=== PATIENT | female | born 1980 | race American Indian/Alaskan Native ===

== ENCOUNTER 2018-07-17 09:30 | Observation (INO) | payer OTHER ==
--- NOTE | 2018-07-17 10:41 | ED PDOC ---
Arrival/HPI - General Chief Complaint: Weakness/Neurological Deficit Time Seen by Provider: 07/17/18 09:38 Historian: Patient - History of Present Illness Narrative History of Present Illness (Text): 07/17/18 10:33 38yo morbidly obese female with pmhx of Ji's disease present with complaint of left arm numbness/weakness with associated nausea and lightheadedness at 0730am this morning, while driving to work. States the numbness resolved while in ED waiting room. States she had chest pain 2days ago , that resolved. She states she have not seen a Doctor for a while now. Denies diaphoresis, visual changes, abdominal pain, slurred speech, facial droop, focal weakness, back pain, any other complaint. Past Medical History - Provider Review Nursing Documentation Reviewed: Yes - Infectious Disease Hx of Infectious Diseases: None - Endocrine/Metabolic Other/Comment: Ji's disease - Psychiatric Hx Substance Use: No - Surgical History Hx Dilation and Curettage: Yes - Anesthesia Hx Anesthesia: Yes Hx Anesthesia Reactions: No Hx Malignant Hyperthermia: No Family/Social History - Physician Review Nursing Documentation Reviewed: Yes Family/Social History: Unknown Family HX Smoking Status: Never Smoked Hx Alcohol Use: No Hx Substance Use: No Allergies/Home Meds Allergies/Adverse Reactions: Allergies No Known Allergies Allergy (Verified 07/17/18 09:35) Home Medications: Home Meds Medication Instructions Recorded Confirmed No Known Home Med 07/17/18 07/17/18 Review of Systems - Physician Review All systems were reviewed & negative as marked: Yes - Review of Systems Constitutional: Normal Eyes: Normal ENT: Normal Respiratory: Normal Cardiovascular: Normal Gastrointestinal: Normal Genitourinary Female: Normal Musculoskeletal: Normal Skin: Normal Neurological: Normal Endocrine: Normal Hemo/Lymphatic: Normal Psychiatric: Normal Physical Exam Vital Signs Reviewed: Yes Vital Signs Temp Pulse Resp BP Pulse Ox 07/17/18 09:39 98.4 F 86 18 118/64 100 Temperature: Afebrile Blood Pressure: Normal Pulse: Regular Respiratory Rate: Normal Appearance: Positive for: Well-Appearing, Non-Toxic, Comfortable Pain Distress: None Mental Status: Positive for: Alert and Oriented X 3 - Systems Exam Head: Present: Atraumatic, Normocephalic Pupils: Present: PERRL Extroacular Muscles: Present: EOMI Conjunctiva: Present: Normal Mouth: Present: Moist Mucous Membranes Neck: Present: Normal Range of Motion Respiratory/Chest: Present: Clear to Auscultation, Good Air Exchange. No: Respiratory Distress, Accessory Muscle Use Cardiovascular: Present: Regular Rate and Rhythm, Normal S1, S2. No: Murmurs Abdomen: No: Tenderness, Distention, Peritoneal Signs Back: Present: Normal Inspection Upper Extremity: Present: Normal Inspection. No: Cyanosis, Edema Lower Extremity: Present: Normal Inspection. No: Edema Neurological: Present: GCS=15, CN II-XII Intact, Speech Normal, Motor Func Grossly Intact, Normal Sensory Function, Normal Cerebellar Funct, Norm Deep Tendon Reflexes, Gait Normal, Memory Normal, Normal 2Pt Descrimination, Other ( No focal neurological deficit) Skin: Present: Warm, Dry, Normal Color. No: Rashes Psychiatric: Present: Alert, Oriented x 3, Normal Insight, Normal Concentration Medical Decision Making ED Course and Treatment: 07/17/18 12:08 38yo female present with complaint of left arm weakness/numbness. Labs ordered thyroid profile Cardiac monitoring swallow test EKG Head CT CXR Will reassess EKG NSR @ 83bpm CXR NAD 07/17/18 12:21 PT remain neurologically intact in ED. Labs was reviewed and was unremarkable with exception of mild low T4 - 0.[address] - No acute finding Pt's symptoms resolved in ED. She will be placed on OBS for TIA for further evaluation. Case was DW Dr. Armstrong and she accepted pt to her service. - Lab Interpretations Lab Results: 07/17/18 11:03 07/17/18 11:03 Lab Results 07/17/18 11:03: Free T4 0.71 L, TSH 3rd Generation 0.74 07/17/18 11:03: Urine Color Yellow, Urine Appearance Clear, Urine pH 6.5, Ur Specific [place] 1.015, Urine Protein Trace H, Urine Glucose (UA) Negative, Urine Ketones Negative, Urine Blood Negative, Urine Nitrate Negative, Urine Bilirubin Negative, Urine Urobilinogen 0.2, Ur Leukocyte Esterase Negative, Urine RBC 0 - 2, Urine WBC 0 - 2, Ur Epithelial Cells 4 - 5, Urine Bacteria Mod 07/17/18 11:03: Sodium 141, Potassium 4.4, Chloride 104, Carbon Dioxide 22, Anion Gap 20, BUN 9, Creatinine 0.6 L, Est GFR ( Amer) > 60, Est GFR (Non -Af Amer) > 60, Random Glucose 115 H, Calcium 9.8, Total Bilirubin 0.3, AST 19, ALT 17, Alkaline Phosphatase 79, Troponin I < 0.01, Total Protein 8.6 H, Albumin 4.4, Globulin 4.2, Albumin/Globulin Ratio 1.0 L, Triglycerides 129, Cholesterol 181, LDL Cholesterol Direct 104, HDL Cholesterol 36 07/17/18 11:03: PT 12.9 H, INR 1.12, APTT 30.8 07/17/18 11:03: WBC 9.2, RBC 5.42, Hgb 12.7, Hct 38.8, MCV 71.6 L, MCH 23.4 L, MCHC 32.7, RDW 17.2 H, Plt Count 458 H, MPV 8.9, Gran % 69.5 H, Lymph % (Auto) 24.9, [place] % (Auto) 4.4, Eos % (Auto) 1.1 L, Baso % (Auto) 0.1, Gran # 6.42, Lymph # (Auto) 2.3, [place] # (Auto) 0.4, Eos # (Auto) 0.1, Baso # (Auto) 0.01 - RAD Interpretation Radiology Orders: 07/17/18 10:06 HEAD W/O CONTRAST [CT] Stat CHEST ONE VIEW [RAD] Stat - Medication Orders Current Medication Orders: Sodium Chloride (Sodium Chloride 0.9%) 1,000 mls @ 100 mls/hr IV .Q10H JOHN Last Admin: 07/17/18 11:37 Dose: 100 mls/hr eMAR Start Stop Document 07/17/18 11:37 [email or web address] (Rec: 07/17/18 11:39 [email or web address] [id number]) Intravenous Solution Start Date 07/17/18 Start Time 11:39 NIHSS Stroke Scale 3 - Date/Time Evaluation Performed Date Performed: 07/17/18 Time Performed: 10:15 When Was NIHSS Performed: Baseline - How Severe is the Stroke Level of Consciousness: 0=Alert LOC to Questions: 0=Both comments correct LOC to commands: 0=Obeys both correctly Best Gaze: 0=Normal Visual: 0=No visual loss Facial: 0=Normal Motor Arm - Left: 0=No drift Motor Arm - Right: 0=No drift Motor Leg - Left: 0=No drift Motor Leg - Right: 0=No drift Limb Ataxia: 0=Absent Sensory: 0=Normal Best Language: 0=No aphasia Dysarthia: 0=Normal articulation Extinction & Inattention (Neglect): 0=Normal, no object Score: 0 Disposition/Present on Arrival - Present on Arrival Any Indicators Present on Arrival: No History of DVT/PE: No History of Uncontrolled Diabetes: No Urinary Catheter: No History of Decub. Ulcer: No History Surgical Site Infection Following: None - Disposition Have Diagnosis and Disposition been Completed?: Yes Diagnosis: Transient ischemic attack Disposition: HOSPITALIZED Disposition Time: 12:10 Patient Plan: Admission Patient Problems: Current Active Problems Problem Status Onset Transient ischemic attack Acute Condition: STABLE
[2018-07-17 11:18] LABS: PH,URINE 6.5 (4.7-8.0); URINE BILIRUBIN NEGATIVE (NEGATIVE); URINE BLOOD NEGATIVE (NEGATIVE); URINE GLUCOSE (UA) NEGATIVE (NEGATIVE); URINE LEUKOCYTE ESTERASE NEGATIVE Leu/uL (NEGATIVE); URINE PROTEIN TRACE mg/dL (<30 mg/dL); URINE UROBILINOGEN 0.2 E.U./dL (<1 E.U./dL)
[2018-07-17 11:19] LABS: BASO # 0.01 K/mm3 (0.0-2.0); BASO % 0.1 % (0.0-3.0); EOS # 0.1 (0.0-0.7); EOS % 1.1 % (1.5-5.0); GRAN # 6.42 (1.4-6.5); GRAN % 69.5 % (50.0-68.0); HEMOGLOBIN 12.7 g/dL (12.0-16.0); LYMPH # 2.3 (1.2-3.4); LYMPH % 24.9 % (22.0-35.0); MEAN CELL VOLUME 71.6 fl (80.0-105.0); MEAN CORPUSCULAR HEMOGLOBIN 23.4 pg (25.0-35.0); MEAN CORPUSCULAR HGB CONC 32.7 g/dl (31.0-37.0); MEAN PLATELET VOLUME 8.9 fl (7.0-11.0); MONO # 0.4 (0.1-0.6); MONO % 4.4 % (1.0-6.0); RBC 5.42 10^6/uL (3.5-6.1); RED CELL DISTRIBUTION WIDTH 17.2 % (11.5-14.5); URINE APPEARANCE CLEAR (CLEAR); URINE COLOR YELLOW (YELLOW); WHITE BLOOD COUNT 9.2 10^3/ul (4.5-11.0)
[2018-07-17 11:23] LABS: URINE RBC 0 - 2 /hpf (0-2); URINE WBC 0 - 2 /hpf (0-6)
[2018-07-17 11:24] LABS: URINE BACTERIA MOD (NEG)
[2018-07-17 11:32] LABS: INR 1.12; PARTIAL THROMBOPLASTIN TIME 30.8 Seconds (25.1-36.5); PROTHROMBIN TIME 12.9 SECONDS (9.4-12.5)
[2018-07-17 11:33] LABS: ALBUMIN 4.4 g/dL (3.0-4.8); ALT/SGPT 17 U/L (7-56); AST/SGOT 19 U/L (14-36); BLOOD UREA NITROGEN 9 mg/dL (7-21); CALCIUM 9.8 mg/dL (8.4-10.5); GFR AFRICAN-AMERICAN > 60; GFR NON-AFRICAN AMERICAN > 60; HDL CHOLESTEROL 36 mg/dL (29-60)
--- NOTE | 2018-07-17 11:35 | CT ---
Date of service: 07/17/2018 PROCEDURE: CT HEAD WITHOUT CONTRAST. HISTORY: Left hand weakness COMPARISON: None available. TECHNIQUE: Axial computed tomography images were obtained through the head/brain without intravenous contrast. Radiation dose: Total exam DLP = 889.93 mGy-cm. This CT exam was performed using one or more of the following dose reduction techniques: Automated exposure control, adjustment of the mA and/or kV according to patient size, and/or use of iterative reconstruction technique. FINDINGS: HEMORRHAGE: No intracranial hemorrhage. BRAIN: Batista-white matter differentiation is preserved. There is no mass, mass effect or abnormal extra-axial fluid collection. There is no territorial infarction. The midline sagittal structures are normal. VENTRICLES: The ventricles are normal in size, shape and configuration. CALVARIUM: The skull base and calvarium are normal. PARANASAL SINUSES: Predominantly clear. MASTOID AIR CELLS: Predominantly clear. OTHER FINDINGS: None. IMPRESSION: No acute intracranial abnormality. If there is a persistent focal neurologic deficit and an ongoing clinical concern for acute infarction, an MRI of the brain without intravenous contrast would be a more sensitive modality for evaluation of hyperacute/acute ischemic infarction.
[2018-07-17] MEDS: Sodium Chloride 0.9% 1,000 ML IV SCH ×2 (11:37→21:22)
--- NOTE | 2018-07-17 11:39 | RAD ---
Date of service: 07/17/2018 PROCEDURE: CHEST RADIOGRAPH, 1 VIEW HISTORY: Code Stroke COMPARISON: None available. FINDINGS: LUNGS: The lungs are well inflated and clear. PLEURA: No pneumothorax or pleural fluid seen. CARDIOVASCULAR: Normal. OSSEOUS STRUCTURES: No significant abnormalities. VISUALIZED UPPER ABDOMEN: Normal. OTHER FINDINGS: None. IMPRESSION: No active pulmonary disease.
[2018-07-17 11:43] LABS: LDL CHOLESTEROL 104 mg/dL (0-129); TROPONIN I < 0.01 ng/mL
[2018-07-17 11:48] LABS: FREE T4 0.71 ng/dL (0.78-2.19)
--- NOTE | 2018-07-17 14:03 | CP.PCM.HP ---
<Johnny Corona - Last Filed: 07/17/18 13:44> History of Present Illness - History of Present Illness History of Present Illness: Maurice Corona PGY-2 - History and Physical for Hospitalist Service CC: Left hand/arm numbness HPI: 38 year old female with past medical history of Ji's thyroiditis who presents with left hand and arm parasthesias. Patient indicates that on her drive to work this morning starting at about 7 am she began to experience tingling and numbness in her left hand that radiated up in to her left arm. Associated symptoms included nausea without vomiting and feelings of being hot. She denied weakness, paralysis, poor coordination associated with symptoms. She reports symptoms progressed from hand to arm back down to her hand and then diminished. She stated that while waiting in emergency department her symptoms subsided completely. She indicates that at the time of her symptoms she was experiencing symptoms of anxiety. Patient denied any other neurological deficits , denied facial numbness, left leg numbness, poor coordination. She denies dizziness, changes in vision, headache. Patient was able to complete her drive without issue. Patient also indicated that 3 days prior to admission she had a 24 hour history of chest discomfort. She described the pain as a squeezing of her chest, starting midsternal without radiation, rated mild pain. She indicated that with rest the pain would diminish and that if she were to lay on one side or the other she would have increase in her pain symptoms. She denied taking anything for her symptoms or prior episodes. 12 POINT ROS benign other than mentioned in HPI PMH: Ji's Thyroiditis, Hx of benign goitersx3 PSH: D&C SocHx: Denies tobacco, ETOH, ID - Lives in [place] with mother, brother, daughter, works in IT FMH: Mother/Father: DM2, HTN ALL: NKDA MEDS: Denies PMD: [place], [place] Physical Education Teacher: Dr. Romero([facility]) Present on Admission - Present on Admission Any Indicators Present on Admission: No Review of Systems - Review of Systems All systems: reviewed and no additional remarkable complaints except (as mentioned in HPI) Past Patient History - Infectious Disease Hx of Infectious Diseases: None - Past Social History Smoking Status: Never Smoked Alcohol: None Drugs: Denies - ENDOCRINE/METABOLIC Other/Comment: Ji's disease - PSYCHIATRIC Hx Substance Use: No - SURGICAL HISTORY Hx Dilation and Curettage: Yes - ANESTHESIA Hx Anesthesia: Yes Hx Anesthesia Reactions: No Hx Malignant Hyperthermia: No Meds Allergies/Adverse Reactions: Allergies Allergy/AdvReac Type Severity Reaction Status Date / Time No Known Allergies Allergy Verified 07/17/18 09:35 Physical Exam - Constitutional Appears: Non-toxic, No Acute Distress - Head Exam Head Exam: ATRAUMATIC, NORMAL INSPECTION, NORMOCEPHALIC - Eye Exam Eye Exam: EOMI, PERRL. absent: Nystagmus, Scleral icterus - ENT Exam ENT Exam: Mucous Membranes Moist - Neck Exam Neck exam: Positive for: Full Rom. Negative for: Lymphadenopathy, Tenderness - Respiratory Exam Respiratory Exam: Clear to Auscultation Bilateral, NORMAL BREATHING PATTERN. absent: Rales, Rhonchi, Wheezes - Cardiovascular Exam Cardiovascular Exam: Tachycardia, REGULAR RHYTHM, +S1, +S2 - GI/Abdominal Exam GI & Abdominal Exam: Normal Bowel Sounds, Soft. absent: Distended, Guarding, Rebound, Rigid - Extremities Exam Extremities exam: Positive for: pedal pulses present. Negative for: calf tenderness, pedal edema, tenderness - Neurological Exam Neurological exam: Alert, CN II-XII Intact, Normal Gait, Oriented x3, Reflexes Normal Additional comments: AAOx3 Coordination intact Patient able to move all four extremities past midline Heel to bautista intact Sensory grossly intact - Psychiatric Exam Psychiatric exam: Normal Affect, Normal Mood - Skin Skin Exam: Dry, Intact, Warm Results - Vital Signs Recent Vital Signs: Last Vital Signs Temp 98.2 F 07/17/18 12:55 Pulse 93 H 07/17/18 12:55 Resp 18 07/17/18 12:55 BP 119/72 07/17/18 12:54 Pulse Ox 98 07/17/18 12:55 - Labs Result Diagrams: 07/17/18 11:03 07/17/18 11:03 Assessment & Plan - Assessment and Plan (Free Text) Assessment: 38 year old female with past medical history of Ji's thyroiditis who presents with left hand and arm parasthesias. Patient symptoms have resolved. Head CT negative. Neurology to be consulted. Will continue to monitor patient overnight. Plan: Left upper extremity paresthisias - Etiology: TIA vs. DM2 vs. entrapment neuropathy vs. Thoracic outlet syndrome vs. Hypocalcemia - CT head preformed showing no acute findings - HgA1c ordered, bg 115 on admission, no hx - Karsten sign negative, Anton's test negative - Calcium stable - Echocardiogram pending - Neurology consultation, appreciate recs - Neuro checks, monitor for change Hx of Ji's thyroiditis - Patient currently asymptomatic and non medicated - TSH: nml Free T4 0.71 - Recommend outpatient follow up for management and observation GI/DVT ppx - None - Rainer score: 1, SCDs Case and plan discussed with attending, Dr. Jennifer Corona PGY2 - Date & Time Date: 07/17/18 Time: 14:06 <Chris Rodriguez - Last Filed: 07/18/18 17:02> Results - Vital Signs Recent Vital Signs: Last Vital Signs Temp 98.2 F 07/18/18 07:47 Pulse 85 07/18/18 07:47 Resp 19 07/18/18 07:47 BP 145/66 07/18/18 07:47 Pulse Ox 99 07/18/18 07:47 - Labs Result Diagrams: 07/18/18 05:30 07/18/18 05:30 Labs: Laboratory Results - last 24 hr 07/17/18 07/18/18 07/18/18 23:45 05:30 05:30 WBC 7.4 RBC 4.75 Hgb 10.8 L Hct 34.0 L MCV 71.6 L MCH 22.7 L MCHC 31.8 RDW 17.3 H Plt Count 384 MPV 8.8 Gran % 48.4 L Lymph % (Auto) 40.4 H [place] % (Auto) 8.6 H Eos % (Auto) 2.3 Baso % (Auto) 0.3 Gran # 3.56 Lymph # (Auto) 3.0 [place] # (Auto) 0.6 Eos # (Auto) 0.2 Baso # (Auto) 0.02 Sodium 141 Potassium 4.3 Chloride 108 H Carbon Dioxide 24 Anion Gap 14 BUN 8 Creatinine 0.6 L Est GFR ( Amer) > 60 Est GFR (Non-Af Amer) > 60 Random Glucose 123 H Calcium 8.7 Total Bilirubin 0.2 AST 23 ALT 23 Alkaline Phosphatase 62 Troponin I < 0.01 Total Protein 6.7 Albumin 3.4 Globulin 3.4 Albumin/Globulin Ratio 1.0 L Attending/Attestation - Attestation I have personally seen and examined this patient.: Yes I have fully participated in the care of the patient.: Yes I have reviewed all pertinent clinical information: Yes Notes (Text): 07/18/18 16:59 attending note; Patient seen and examined with resident In ER. Patient is a38 year old female with past medical history of Ji's thyroiditis who presents with left hand and arm parasthesias. Patient indicates that on her drive to work this morning starting at about 7 am she began to experience tingling and numbness in her left hand that radiated up in to her left arm. currently the numbness is resolved. Patient also complains of transient is discomfort 2 days ago. Denies any past medical history of hypertension, diabetes, hyperlipidemia, coronary artery disease or family history of CAD. CT head is negative. Neurology evaluation requested. Less likely TIA. Cardiac enzymes 3 ordered. Mostly musculoskeletal pain. Echocardiogram requested. history of Ji's disease;TSH is normal. upon discharge the patient will follow up with [facility]. patient is strongly advised to follow-up with endocrinology as outpatient.
[2018-07-17 14:20] VITALS: BMI 43.0
--- NOTE | 2018-07-17 15:28 | CP.PCM.CON ---
History of Present Illness - History of Present Illness History of Present Illness: Joseph Painter PGY2 Neurology Consult for Dr. Junior Ms. Trujillo is a 38-year-old -Citizen Of [place] female with a PMH of Ji's thyroiditis, benign thyroid goiters, and obesity who presents with left upper extremity numbness for several hours earlier today. Neurology is consulted for evaluation for TIA. Patient states that she has had similar symptoms of numbness and tingling in both her arms before, but never as pronounced as earlier today. She states she was driving at the time, and was a little anxious. She denied any focal weakness, headaches, dizziness, changes in vision /hearing, slurring of speech or facial asymmetry. She does state that she experienced some chest discomfort over the past 2 days, but that has resolved. The patient does not take any medications currently. 12 point ROS was reviewed and is otherwise unremarkable. PMH: Ji's Thyroiditis, Hx of benign goitersx3 PSH: D&C Meds: none Allergies: NKDA SHx: Denies tobacco, EtOH or drug use FMH: Mother/Father: DM2, HTN Review of Systems - Review of Systems All systems: reviewed and no additional remarkable complaints except (as per HPI ) Past Patient History - Infectious Disease Hx of Infectious Diseases: None - Past Medical History & Family History Past Medical History?: Yes Pertinent Family History: as per hPI - Past Social History Smoking Status: Never Smoked Alcohol: None Drugs: Denies - CARDIAC Hx Cardiac Disorders: No - PULMONARY Hx Respiratory Disorders: No - NEUROLOGICAL Hx Neurological Disorder: No - HEENT Hx HEENT Problems: No - RENAL Hx Chronic Kidney Disease: No - ENDOCRINE/METABOLIC Hx Endocrine Disorders: Yes Other/Comment: Ji's disease - HEMATOLOGICAL/ONCOLOGICAL Hx Blood Disorders: No - INTEGUMENTARY Hx Dermatological Problems: No - MUSCULOSKELETAL/RHEUMATOLOGICAL Hx Musculoskeletal Disorders: No Hx Falls: No - GASTROINTESTINAL Hx Gastrointestinal Disorders: No - GENITOURINARY/GYNECOLOGICAL Hx Genitourinary Disorders: No - PSYCHIATRIC Hx Psychophysiologic Disorder: No Hx Substance Use: No - SURGICAL HISTORY Hx Dilation and Curettage: Yes - ANESTHESIA Hx Anesthesia: Yes Hx Anesthesia Reactions: No Hx Malignant Hyperthermia: No Meds Allergies/Adverse Reactions: Allergies Allergy/AdvReac Type Severity Reaction Status Date / Time No Known Allergies Allergy Verified 07/17/18 09:35 - Medications Medications: Current Medications Acetaminophen (Tylenol 325mg Tab) 650 mg PO Q6H PRN PRN Reason: Pain, moderate (4-7) Aspirin (Ecotrin) 81 mg PO DAILY [facility] Last Admin: 07/17/18 14:41 Dose: 81 mg Atorvastatin Calcium (Lipitor) 10 mg PO DIN [facility] Sodium Chloride (Sodium Chloride 0.9%) 1,000 mls @ 100 mls/hr IV .Q10H [facility] Last Admin: 07/17/18 11:37 Dose: 100 mls/hr Physical Exam - Constitutional Appears: Well, Non-toxic, No Acute Distress - Head Exam Head Exam: NORMAL INSPECTION - Eye Exam Eye Exam: EOMI, Normal appearance, PERRL - ENT Exam ENT Exam: Mucous Membranes Moist Additional comments: is missing teeth on left side of face so appears to have mild facial droop but is false - Neck Exam Neck exam: Positive for: Normal Inspection - Respiratory Exam Respiratory Exam: NORMAL BREATHING PATTERN. absent: Respiratory Distress - Cardiovascular Exam Cardiovascular Exam: RRR, +S1, +S2 - GI/Abdominal Exam GI & Abdominal Exam: Normal Bowel Sounds, Soft. absent: Distended, Tenderness Additional comments: obese body habitus - Extremities Exam Extremities exam: Positive for: full ROM, normal inspection. Negative for: pedal edema - Back Exam Back exam: NORMAL INSPECTION - Neurological Exam Neurological exam: Alert, CN II-XII Intact, Normal Gait, Oriented x3 Additional comments: no motor sensory deficits no facial asymmetry no slurring of speech no dysmetria noted - Psychiatric Exam Psychiatric exam: Normal Mood - Skin Skin Exam: Normal Color Results - Vital Signs Recent Vital Signs: Last Vital Signs Temp 98.1 F 07/17/18 14:11 Pulse 91 H 07/17/18 14:11 Resp 18 07/17/18 14:11 BP 122/70 07/17/18 14:11 Pulse Ox 98 07/17/18 12:55 - Labs Result Diagrams: 07/17/18 11:03 07/17/18 11:03 Assessment & Plan - Assessment and Plan (Free Text) Assessment: 38-year-old -Citizen Of [place] female with a PMH of Ji's thyroiditis, benign thyroid goiters, and obesity who presents with left upper extremity numbness that has resolved. CT head was unremarkable. EKG showed NSR at 83 bpm. Lipid panel shows LDL 104, HDL 36. CVA/TIA is unlikely given the presentation, and this is likely due to peripheral neuropathy. Plan: - started on ASA 81mg daily to risk of future thrombotic events - started on Lipitor - A1C pending - trending troponin - PT eval - further recs per Dr. Junior Will sign off at this time. Please reconsult if needed. Case was reviewed and discussed with attending, Dr. Vernon Painter PGY2
--- NOTE | 2018-07-17 21:00 | CARD ---
APPROVED REPORT Date of service: 07/17/2018 EKG Measurement Heart [id number] <Conclusion> Normal sinus rhythm Cannot rule out Inferior infarct, age undetermined Abnormal ECG
[2018-07-18 06:29] LABS: BASO # 0.02 K/mm3 (0.0-2.0); BASO % 0.3 % (0.0-3.0); EOS # 0.2 (0.0-0.7); EOS % 2.3 % (1.5-5.0); GRAN # 3.56 (1.4-6.5); GRAN % 48.4 % (50.0-68.0); HEMOGLOBIN 10.8 g/dL (12.0-16.0); LYMPH % 40.4 % (22.0-35.0); MEAN CELL VOLUME 71.6 fl (80.0-105.0); MEAN CORPUSCULAR HEMOGLOBIN 22.7 pg (25.0-35.0); MEAN CORPUSCULAR HGB CONC 31.8 g/dl (31.0-37.0); MEAN PLATELET VOLUME 8.8 fl (7.0-11.0); MONO # 0.6 (0.1-0.6); MONO % 8.6 % (1.0-6.0); RBC 4.75 10^6/uL (3.5-6.1); RED CELL DISTRIBUTION WIDTH 17.3 % (11.5-14.5); WHITE BLOOD COUNT 7.4 10^3/ul (4.5-11.0)
[2018-07-18 06:48] LABS: ALBUMIN 3.4 g/dL (3.0-4.8); ALT/SGPT 23 U/L (7-56); AST/SGOT 23 U/L (14-36); BLOOD UREA NITROGEN 8 mg/dL (7-21); CALCIUM 8.7 mg/dL (8.4-10.5); GFR AFRICAN-AMERICAN > 60; GFR NON-AFRICAN AMERICAN > 60
[2018-07-18 07:47] VITALS: BP 145/66; PULSE 85; RESP 19; TEMP 98.2; O2SAT 99
--- NOTE | 2018-07-18 12:52 | CP.PCM.DIS ---
<Alverto Antoine - Last Filed: 07/18/18 13:38> Provider - Provider Date of Admission: 07/17/18 12:05 Attending physician: Chris Rodriguez MD Primary care physician: [facility] clinic Consults: Neurology Time Spent in preparation of Discharge (in minutes): 35 Hospital Course - Lab Results Lab Results: Most Recent Lab Values WBC 7.4 10^3/ul (4.5-11.0) 07/18/18 05:30 RBC 4.75 10^6/uL (3.5-6.1) 07/18/18 05:30 Hgb 10.8 g/dL (12.0-16.0) L 07/18/18 05:30 Hct 34.0 % (36.0-48.0) L 07/18/18 05:30 MCV 71.6 fl (80.0-105.0) L 07/18/18 05:30 MCH 22.7 pg (25.0-35.0) L 07/18/18 05:30 MCHC 31.8 g/dl (31.0-37.0) 07/18/18 05:30 RDW 17.3 % (11.5-14.5) H 07/18/18 05:30 Plt Count 384 10^3/uL (120.0-450.0) 07/18/18 05:30 MPV 8.8 fl (7.0-11.0) 07/18/18 05:30 Gran % 48.4 % (50.0-68.0) L 07/18/18 05:30 Lymph % (Auto) 40.4 % (22.0-35.0) H 07/18/18 05:30 [place] % (Auto) 8.6 % (1.0-6.0) H 07/18/18 05:30 Eos % (Auto) 2.3 % (1.5-5.0) 07/18/18 05:30 Baso % (Auto) 0.3 % (0.0-3.0) 07/18/18 05:30 Gran # 3.56 (1.4-6.5) 07/18/18 05:30 Lymph # (Auto) 3.0 (1.2-3.4) 07/18/18 05:30 [place] # (Auto) 0.6 (0.1-0.6) 07/18/18 05:30 Eos # (Auto) 0.2 (0.0-0.7) 07/18/18 05:30 Baso # (Auto) 0.02 K/mm3 (0.0-2.0) 07/18/18 05:30 PT 12.9 SECONDS (9.4-12.5) H 07/17/18 11:03 INR 1.12 07/17/18 11:03 APTT 30.8 Seconds (25.1-36.5) 07/17/18 11:03 Sodium 141 mmol/L (132-148) 07/18/18 05:30 Potassium 4.3 mmol/L (3.6-5.0) 07/18/18 05:30 Chloride 108 mmol/L (98-107) H 07/18/18 05:30 Carbon Dioxide 24 mmol/L (21-33) 07/18/18 05:30 Anion Gap 14 (10-20) 07/18/18 05:30 BUN 8 mg/dL (7-21) 07/18/18 05:30 Creatinine 0.6 mg/dl (0.7-1.2) L 07/18/18 05:30 Est GFR ( Amer) > 60 07/18/18 05:30 Est GFR (Non-Af Amer) > 60 07/18/18 05:30 Random Glucose 123 mg/dL (70-110) H 07/18/18 05:30 Hemoglobin A1c 6.7 % (4.2-6.5) H 07/17/18 11:03 Calcium 8.7 mg/dL (8.4-10.5) 07/18/18 05:30 Total Bilirubin 0.2 mg/dL (0.2-1.3) 07/18/18 05:30 AST 23 U/L (14-36) 07/18/18 05:30 ALT 23 U/L (7-56) 07/18/18 05:30 Alkaline Phosphatase 62 U/L (38-126) 07/18/18 05:30 Troponin I < 0.01 ng/mL 07/17/18 23:45 Total Protein 6.7 g/dL (5.8-8.3) 07/18/18 05:30 Albumin 3.4 g/dL (3.0-4.8) 07/18/18 05:30 Globulin 3.4 gm/dL 07/18/18 05:30 Albumin/Globulin Ratio 1.0 (1.1-1.8) L 07/18/18 05:30 Triglycerides 129 mg/dL (35-160) 07/17/18 11:03 Cholesterol 181 mg/dL (130-200) 07/17/18 11:03 LDL Cholesterol Direct 104 mg/dL (0-129) 07/17/18 11:03 HDL Cholesterol 36 mg/dL (29-60) 07/17/18 11:03 Free T4 0.71 ng/dL (0.78-2.19) L 07/17/18 11:03 TSH 3rd Generation 0.74 mIU/mL (0.46-4.68) 07/17/18 11:03 Urine Color Yellow (YELLOW) 07/17/18 11:03 Urine Appearance Clear (CLEAR) 07/17/18 11:03 Urine pH 6.5 (4.7-8.0) 07/17/18 11:03 Ur Specific Sharon 1.015 (1.005-1.035) 07/17/18 11:03 Urine Protein Trace mg/dL (<30 mg/dL) H 07/17/18 11:03 Urine Glucose (UA) Negative mg/dL (NEGATIVE) 07/17/18 11:03 Urine Ketones Negative mg/dL (NEGATIVE) 07/17/18 11:03 Urine Blood Negative (NEGATIVE) 07/17/18 11:03 Urine Nitrate Negative (NEGATIVE) 07/17/18 11:03 Urine Bilirubin Negative (NEGATIVE) 07/17/18 11:03 Urine Urobilinogen 0.2 E.U./dL (<1 E.U./dL) 07/17/18 11:03 Ur Leukocyte Esterase Negative Vineet/uL (NEGATIVE) 07/17/18 11:03 Urine RBC 0 - 2 /hpf (0-2) 07/17/18 11:03 Urine WBC 0 - 2 /hpf (0-6) 07/17/18 11:03 Ur Epithelial Cells 4 - 5 /hpf (0-5) 07/17/18 11:03 Urine Bacteria Mod (NEG) 07/17/18 11:03 - Hospital Course Hospital Course: On admission: 38 year old female with past medical history of Ji's thyroiditis who presents with left hand and arm parasthesias. Patient symptoms have resolved. Head CT negative. Neurology to be consulted. Will continue to monitor patient overnight. Hospital course: Patient got admitted to rule out TIA entrapment neuropathy vs. Thoracic outlet syndrome. CT head did not show acute findings. Patient consulted with neeurologist Dr Junior who recommended that patient to start ASA 81mg daily to reduce the risk of future thrombotic events. Troponin trending negative x3. Patient was evaluated by physical therapist with no recommendations for PT services. Patient's HgA1c 6.7, blood glucose 115 on admission. Echocardiogram was done, preliminary results showed mild RVSP elevation for pulmonary hypertension and mild tricuspid regurgitation. Patient had a history of Ji's thyroiditis with nodular goiter that she did not follow up for in more than a year and did not take medication. Patient reported syptoms of fatigue, skin and hair changes and weight gain. 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 Today, patient did not have any complaints and was medically optimized for discharge and outpatient follow up as stated. On discharge: Please follow up the [facility] on Aug 03 3: 30pm after discharge. Please follow up with your Occupational Health Rn regarding management of your thyroid disease Please follow a healthy diet and exercise regimen, as tolerated, to avoid complications of heart disease or stroke in the future. Return to the nearest emergency department if you experience worsening or newly concerning symptoms. Discharge planning was conducted with patient including outpatient follow up, medication reconciliation, and signs and symptoms to be aware of for return to emergency department. Patient was in understanding and able to recall instructions back to primary team. Patient was deemed to be medically optimized for discharge by consultants involved in her care as well as her primary medical team. For further details regarding hospital stay please refer to full chart. - Date & Time of H&P Date of H&P: 07/18/18 Time of H&P: 13:38 Discharge Exam - Head Exam Head Exam: NORMAL INSPECTION - Eye Exam Eye Exam: EOMI, Normal appearance, PERRL Pupil Exam: NORMAL ACCOMODATION, PERRL - ENT Exam ENT Exam: Mucous Membranes Moist, Normal Exam - Neck Exam Neck exam: Full Rom Additional comments: bilateral thyromegaly more prominent on the right lower neck. no lymphadenopathy noted - Respiratory Exam Respiratory Exam: Clear to PA & Lateral, NORMAL BREATHING PATTERN - Cardiovascular Exam Cardiovascular Exam: REGULAR RHYTHM, +S1, +S2 - GI/Abdominal Exam GI & Abdominal Exam: Normal Bowel Sounds, Soft, Unremarkable - Rectal Exam Rectal Exam: Deferred - Extremities Exam Extremities exam: full ROM, normal capillary refill, normal inspection - Back Exam Back exam: muscle spasm - Neurological Exam Neurological exam: Alert, CN II-XII Intact, Oriented x3, Reflexes Normal - Psychiatric Exam Psychiatric exam: Normal Affect, Normal Mood - Skin Skin Exam: Dry, Intact, Normal Color, Warm Discharge Plan - Discharge Medications Prescriptions: Aspirin [Ecotrin] 81 mg PO DAILY #30 tabec - Follow Up Plan Condition: STABLE Disposition: HOME/ ROUTINE Instructions: Heart Healthy Diet, Weight Loss Diet, Obesity, Adult (DC) Additional Instructions: Please follow up the [facility] on Aug 03 3: 30pm after discharge. Please start taking Asprin 81 mg daily tablet to reduce the risk for future stroke Please follow up with your Occupational Health Rn regarding management of your thyroid disease Please follow a healthy diet and exercise regimen, as tolerated, to avoid complications of heart disease or stroke in the future. Return to the nearest emergency department if you experience worsening or newly concerning symptoms. <Chris Rodriguez - Last Filed: 07/18/18 17:39> Provider - Provider Date of Admission: 07/17/18 12:05 Attending physician: Chris Rodriguez MD Hospital Course - Lab Results Lab Results: Most Recent Lab Values WBC 7.4 10^3/ul (4.5-11.0) 07/18/18 05:30 RBC 4.75 10^6/uL (3.5-6.1) 07/18/18 05:30 Hgb 10.8 g/dL (12.0-16.0) L 07/18/18 05:30 Hct 34.0 % (36.0-48.0) L 07/18/18 05:30 MCV 71.6 fl (80.0-105.0) L 07/18/18 05:30 MCH 22.7 pg (25.0-35.0) L 07/18/18 05:30 MCHC 31.8 g/dl (31.0-37.0) 07/18/18 05:30 RDW 17.3 % (11.5-14.5) H 07/18/18 05:30 Plt Count 384 10^3/uL (120.0-450.0) 07/18/18 05:30 MPV 8.8 fl (7.0-11.0) 07/18/18 05:30 Gran % 48.4 % (50.0-68.0) L 07/18/18 05:30 Lymph % (Auto) 40.4 % (22.0-35.0) H 07/18/18 05:30 [place] % (Auto) 8.6 % (1.0-6.0) H 07/18/18 05:30 Eos % (Auto) 2.3 % (1.5-5.0) 07/18/18 05:30 Baso % (Auto) 0.3 % (0.0-3.0) 07/18/18 05:30 Gran # 3.56 (1.4-6.5) 07/18/18 05:30 Lymph # (Auto) 3.0 (1.2-3.4) 07/18/18 05:30 [place] # (Auto) 0.6 (0.1-0.6) 07/18/18 05:30 Eos # (Auto) 0.2 (0.0-0.7) 07/18/18 05:30 Baso # (Auto) 0.02 K/mm3 (0.0-2.0) 07/18/18 05:30 PT 12.9 SECONDS (9.4-12.5) H 07/17/18 11:03 INR 1.12 07/17/18 11:03 APTT 30.8 Seconds (25.1-36.5) 07/17/18 11:03 Sodium 141 mmol/L (132-148) 07/18/18 05:30 Potassium 4.3 mmol/L (3.6-5.0) 07/18/18 05:30 Chloride 108 mmol/L (98-107) H 07/18/18 05:30 Carbon Dioxide 24 mmol/L (21-33) 07/18/18 05:30 Anion Gap 14 (10-20) 07/18/18 05:30 BUN 8 mg/dL (7-21) 07/18/18 05:30 Creatinine 0.6 mg/dl (0.7-1.2) L 07/18/18 05:30 Est GFR ( Amer) > 60 07/18/18 05:30 Est GFR (Non-Af Amer) > 60 07/18/18 05:30 Random Glucose 123 mg/dL (70-110) H 07/18/18 05:30 Hemoglobin A1c 6.7 % (4.2-6.5) H 07/17/18 11:03 Calcium 8.7 mg/dL (8.4-10.5) 07/18/18 05:30 Total Bilirubin 0.2 mg/dL (0.2-1.3) 07/18/18 05:30 AST 23 U/L (14-36) 07/18/18 05:30 ALT 23 U/L (7-56) 07/18/18 05:30 Alkaline Phosphatase 62 U/L (38-126) 07/18/18 05:30 Troponin I < 0.01 ng/mL 07/17/18 23:45 Total Protein 6.7 g/dL (5.8-8.3) 07/18/18 05:30 Albumin 3.4 g/dL (3.0-4.8) 07/18/18 05:30 Globulin 3.4 gm/dL 07/18/18 05:30 Albumin/Globulin Ratio 1.0 (1.1-1.8) L 07/18/18 05:30 Triglycerides 129 mg/dL (35-160) 07/17/18 11:03 Cholesterol 181 mg/dL (130-200) 07/17/18 11:03 LDL Cholesterol Direct 104 mg/dL (0-129) 07/17/18 11:03 HDL Cholesterol 36 mg/dL (29-60) 07/17/18 11:03 Free T4 0.71 ng/dL (0.78-2.19) L 07/17/18 11:03 TSH 3rd Generation 0.74 mIU/mL (0.46-4.68) 07/17/18 11:03 Urine Color Yellow (YELLOW) 07/17/18 11:03 Urine Appearance Clear (CLEAR) 07/17/18 11:03 Urine pH 6.5 (4.7-8.0) 07/17/18 11:03 Ur Specific [place] 1.015 (1.005-1.035) 07/17/18 11:03 Urine Protein Trace mg/dL (<30 mg/dL) H 07/17/18 11:03 Urine Glucose (UA) Negative mg/dL (NEGATIVE) 07/17/18 11:03 Urine Ketones Negative mg/dL (NEGATIVE) 07/17/18 11:03 Urine Blood Negative (NEGATIVE) 07/17/18 11:03 Urine Nitrate Negative (NEGATIVE) 07/17/18 11:03 Urine Bilirubin Negative (NEGATIVE) 07/17/18 11:03 Urine Urobilinogen 0.2 E.U./dL (<1 E.U./dL) 07/17/18 11:03 Ur Leukocyte Esterase Negative Vineet/uL (NEGATIVE) 07/17/18 11:03 Urine RBC 0 - 2 /hpf (0-2) 07/17/18 11:03 Urine WBC 0 - 2 /hpf (0-6) 07/17/18 11:03 Ur Epithelial Cells 4 - 5 /hpf (0-5) 07/17/18 11:03 Urine Bacteria Mod (NEG) 07/17/18 11:03 Attending/Attestation - Attestation I have personally seen and examined this patient.: Yes I have fully participated in the care of the patient.: Yes I have reviewed all pertinent clinical information, including history, physical exam and plan: Yes Notes (Text): 07/18/18 17:37 attending note; Patient seen and examined with resident. Patient is a 38 year old female with past medical history of Ji's thyroiditis who presents with left hand and arm parasthesias. currently the numbness is resolved. CT head is negative. Neurology evaluation appreciated. Less likely TIA. chest discomfort; Cardiac enzymes 3 negative. Mostly musculoskeletal pain. Echocardiogram prelim without significant abnormality. history of Ji's disease;TSH is normal. upon discharge the patient will follow up with [facility] clinic. patient is strongly advised to follow-up with endocrinology as outpatient.
--- NOTE | 2018-07-18 20:14 | CARD ---
APPROVED REPORT Date of service: 07/18/2018 EXAM: Two-dimensional and M-mode echocardiogram with Doppler and color Doppler. INDICATION Dizziness and Vertigo DIZZINESS,LVFX 2D DIMENSIONS Left Atrium (2D)3.9 (1.6-4.0cm)IVSd0.9 (0.7-1.1cm) LVDd5.2 (3.9-5.9cm)PWd1.0 (0.7-1.1cm) LVDs3.5 (2.5-4.0cm)FS (%) 32.8 % LVEF (%)60.8 (>50%) M-Mode DIMENSIONS Aortic Root2.60 (2.2-3.7cm)Aortic Cusp Exc.1.60 (1.5-2.0cm) Aortic Valve AoV Peak Uiykwvus862.0cm/Julito Peak GR.16mmHg Mitral Valve MV E Xnrhvpkd60.9cm/sMV A Zlsifmux23.1cm/sE/A ratio1.2 TDI Lateral E' Peak V13.10cm/sMedial E' Peak V8.68cm/sE/Lateral E'6.5 E/Medial E'9.8 Pulmonary Valve PV Peak Yyyjqkie59.2cm/sPV Peak Grad.4mmHg Tricuspid Valve TR Peak Fymgscjd525ev/sRAP [id number] Peak Gr.33mmHg LONZ51vbPa LEFT VENTRICLE The left ventricle is normal size. There is normal left ventricular wall thickness. The left ventricular function is normal. The left ventricular ejection fraction is within the normal range. There is normal LV segmental wall motion. The left ventricular diastolic function is normal. RIGHT VENTRICLE The right ventricle is normal size. There is normal right ventricular wall thickness. The right ventricular systolic function is normal. ATRIA The left atrium is borderline dilated. The right atrium size is normal. AORTIC VALVE The aortic valve is normal in structure. No aortic regurgitation is present. There is no aortic valvular stenosis. MITRAL VALVE The mitral valve is normal in structure. Mitral regurgitation is mild. There is no mitral valve stenosis. TRICUSPID VALVE The tricuspid valve is normal in structure. There is mild tricuspid regurgitation. There is mild pulmonary hypertension. PULMONIC VALVE The pulmonary valve is normal in structure. There is no pulmonic valvular regurgitation. GREAT VESSELS The aortic root is normal in size. The IVC is normal in size and collapses >50% with inspiration. PERICARDIAL EFFUSION There is no pericardial effusion. <Conclusion> The left ventricle is normal size. There is normal left ventricular wall thickness. The left ventricular function is normal. The left ventricular ejection fraction is within the normal range. There is normal LV segmental wall motion. The left ventricular diastolic function is normal. Mitral regurgitation is mild. There is mild tricuspid regurgitation. There is mild pulmonary hypertension.
== END 2018-07-18 14:24 | disposition home or self-care (01) ==
LOC: ED 09:30 → ERH 12:05 → 3RNO 13:24
PROVIDERS: ADMIT Internal Medicine; ATTEND Internal Medicine
DX: R20.2 Paresthesia of skin (principal); R07.89 Other chest pain; E06.3 Autoimmune thyroiditis; E66.01 Morbid (severe) obesity due to excess calories; Z68.41 Body mass index [BMI] 40.0-44.9, adult; Z83.3 Family history of diabetes mellitus; Z82.49 Family history of ischemic heart disease and other diseases of the circulatory system
CPT/HCPCS: 36415; 70450; 71045; 80053; 80061; 81001; 83036; 84439; 84443; 84484; 85025; 85610; 85730; 93005; 93306; 97116; 97161; 99285; G0378; G8978; G8979; G8980; J7030